=== PATIENT | male | born 1990 | race Caucasian/White ===

== ENCOUNTER 2024-11-19 03:31 | Emergency (ER) | payer MEDICARE, MEDICAID ==
[~2024-11-19] VITALS: Ht 182.9 cm; Wt 100.0 kg
[~2024-11-19 03:31] MED LIST: LITH300C3 PO; RISP3TAB35 PO
[2024-11-19 03:34] VITALS: BP 141/95; PULSE 107; RESP 16; TEMP 98.3; O2SAT 98
[2024-11-19] MEDS ORDERED: ACET-3385 PO (04:05)
[2024-11-19] MEDS ORDERED: LIDO700A15 TP (04:05)
[2024-11-19] MEDS ORDERED: IBUP-1492 PO (04:05)
[2024-11-19] MEDS: LIDOCAINE 5% TRANSDERMAL PATCH TD ONE (04:19)
[2024-11-19] MEDS: IBUPROFEN 600 MG TABLET PO ONE (04:19)
== END 2024-11-19 04:23 | disposition home or self-care (01) ==
LOC: EMS 03:31
DX: M54.12 Radiculopathy, cervical region (principal); M79.642 Pain in left hand; F31.9 Bipolar disorder, unspecified; Z59.00 Homelessness unspecified
CPT/HCPCS: 99283